=== PATIENT | female | born 1940 | race Caucasian/White ===

== ENCOUNTER 2017-04-07 15:40 | Emergency (ER) | payer OTHER ==
[~2017-04-07] VITALS: Ht 152.4 cm; Wt 42.6 kg
--- NOTE | ~2017-04-07 | CR170 ---
[facility] A Service of [facility] / [facility] RADIOLOGY TEXT RESULTS PATIENT: KANDY LEA LOCATION: [facility] : 41 UNIT #: [id number] AGE: [address]: Parminder Reyna MD SEX: F ORDER DR: [id number] [facility] [address] [place], [place] [address] [id number] MR#: [id number] Acc #: [id number] NAME: KANDY LEA : 1940 SEX: F STUDY DATE/TIME: 04/07/2017 16:48 UNIT: [facility] ROOM: STUDY DESCRIPTION: CR Knee 2 Views Rt Attending Physician: Parminder Reyna M.D. Ordering Physician: Parminder Reyna M.D. Primary Care Physician: Ayde Best M.D. MEDICAL IMAGING REPORT This report is preliminary unless electronic signature is present EXAM Right knee. HISTORY Right knee pain beginning 8 days ago. TECHNIQUE Three views of the knee were obtained. FINDINGS Generalized bony demineralization is noted. There are degenerative changes seen at the upper and lower patellar pole with small osteophytes. No significant joint space narrowing is seen in the medial or lateral compartment. No effusion is noted. No osteochondral fragments are seen. If there is clinical concern for an occult fracture, further evaluation with either MRI or nuclear medicine bone scanning may be useful. IMPRESSION There is advanced generalized bony demineralization. No definite fractures are seen. Consider bone scanning or MRI if symptoms persist given the degree of bony demineralization. Mild degenerative changes are seen at the patellofemoral joint. Dictated by... Vlad Morris M.D. THIS IS AN ELECTRONICALLY VERIFIED REPORT Vlad Morris M.D. at 04/10/2017 7:12 AM ASHANTI/leroy TD: 04/08/2017 18:09 JOB #: [id number] [facility] A Service of [facility] / [facility] RADIOLOGY TEXT RESULTS PATIENT: KANDY LEA LOCATION: [facility] : 41 UNIT #: [id number] AGE: [address]: Parminder Reyna MD SEX: F ORDER DR: MEDICAL IMAGING REPORT Page 1 of 1 COPY
[~2017-04-07 15:40] MED LIST: ACETAMINOPHEN PO; ASPIRIN EC81 M1 PO; ASPIRIN81 M1 PO; ASPIRIN81 M2 PO; CARVEDILOL3.125 MG PO; CIPRO PO; COREG CR PO; COREG PO; COREG3.125 MG PO; COUMADIN; COUMADIN PO; COUMADIN3 MG PO; COUMADIN5 MG PO; CYANOCOBAL1000 MCG/M INJ; DAILY VALUE1 EACH PO; DAKIN'S MODIF1000 ML EXT; DOLOPHINE HCL5 MG PO; FLAGYL PO; FOLIC ACID PO; FUROSEMIDE40 MG PO; HYDROCODON-ACE1 EAC7 PO; IMDUR PO; IMDUR-ER60 M1 PO; IMDUR-ER60 M1 PO/SL; IMDUR-ER60 MG PO; IMODIUM2 MG PO; KCL PO; KEFLEX250 M3 PO; KEFLEX500 M1 PO; KEFLEX500 MG PO; KEPPRA500 M1 PO; KEPPRA500 M2 PO; KEPPRA500 MG PO; KEPPRA750 MG PO; KLOR-CON PO; LACTINEX T1 TAB.CHEW PO; LASIX PO; LASIX20 MG PO; LEVOFLOXACIN500 MG PO; LEVOTHROID50 MCG PO; LEVOTHYROXINE50 MCG PO; LEVOTHYROXINE75 MCG PO; LISINOPRIL PO; METHADONE HCL10 MG PO; METHADONE PO; MICONAZOLE30 GM EXT; MICRO-K10 MEQ PO; MULTI-VITAMIN1 TAB PO; MULTIVITAMIN1 UDCAP PO; NABUMETONE PO; POTASSIUM CHLO10 MEQ PO; RANITIDINE HCL150 M1 PO; SANTYL15 G1 TP; SIMVASTATIN20 MG PO; SYNTHROID PO; SYNTHROID0.05 MG PO; TYLENOL EXTRA500 M1 PO; VITAMIN D50000 UNIT PO; WARFARIN SODIUM4 MG PO; ZANTAC PO; ZANTAC150 MG PO; ZOCOR PO; [UNRECOGNIZED DRUG - REMARK] PO
[2017-04-07] MEDS ORDERED: COREG3.125 MG PO (15:57)
[2017-04-07] MEDS ORDERED: VITAMIN D35000 UNI1 PO (15:57)
[2017-04-07] MEDS ORDERED: ASPIRIN81 MG PO (15:57)
[2017-04-07] MEDS ORDERED: IMDUR-ER60 M1 DOB (15:58)
[2017-04-07] MEDS ORDERED: KEPPRA500 M1 (15:58)
[2017-04-07] MEDS ORDERED: SYNTHROID75 MCG PO (15:59)
[2017-04-07] MEDS ORDERED: METHADONE HCL10 MG PO (15:59)
[2017-04-07 16:18] LABS: BASOPHIL% 0.3 % (0-2.5); EOSINOPHIL# 0.1 X10e3 (0-0.7); EOSINOPHIL% 0.9 % (0.0-7.0); HEMATOCRIT 43.5 % (35.0-45.0); HEMOGLOBIN 14.3 gm/dL (12.0-16.0); LYMPHOCYTE# 1.5 X10e3 (1.0-3.5); LYMPHOCYTE% 20.8 % (17.0-45.0); MEAN CELL VOLUME 97.7 FL (83-96); MEAN CORPUSCULAR HEMOGLOBIN 32.1 PG (28-34); MEAN CORPUSCULAR HGB CONC 32.8 g/dL (30-36); MEAN PLATELET VOLUME 8.1 FL (6.5-11.5); MONOCYTE# 0.5 X10e3 (0-1.0); MONOCYTE% 7.2 % (3.0-12.0); NEUTROPHIL# 4.9 X10e3 (1.5-7.1); NEUTROPHIL% 70.8 % (40-75); PLATELET COUNT 138 X10e3 (140-420); RED BLOOD COUNT 4.46 X10e (3.90-5.30); RED CELL DISTRIBUTION WIDTH 13.5 % (11.0-15.5)
[2017-04-07 16:21] LABS: DIFF IND NO
[2017-04-07 16:30] LABS: URINE SOURCE CLEAN CATCH
[2017-04-07 16:39] LABS: URINE APPEARANCE CLOUDY; URINE BILIRUBIN NEG (NEG); URINE BLOOD 2+ (NEG); URINE COLOR YELLOW; URINE GLUCOSE NEG (NEG); URINE KETONE NEG (NEG); URINE LEUKOCYTE ESTERASE 3+ (NEG); URINE NITRATE POS (NEG); URINE PROTEIN TRACE (NEG); URINE SPECIFIC GRAVITY 1.006 (1.003-1.035); URINE UROBILINOGEN 0.2 MG/DL (NEG)
[2017-04-07 16:42] LABS: URINE BACTERIA AUWI 4+ (NEGATIVE); URINE SQUAMOUS EPITHELIAL CELL OCC /[HPF]; UWBCS1 AUWI INNUM (0-5)
[2017-04-07 16:48] LABS: ALBUMIN SERUM 3.8 g/dL (3.5-5.0); BILIRUBIN, DIRECT 0.1 mg/dL (0.0-0.2); BILIRUBIN,INDIRECT 0.7 mg/dL (0.0-0.9); BILIRUBIN,TOTAL 0.8 mg/dL (0.2-2.0); BUN/CREATININE RATIO 22.3; CALCIUM SERUM 9.1 mg/dL (8.4-10.2); CREATININE SERUM 1.3 mg/dL (0.6-1.4); GLOM FILT RATE Estimated 40.1 mL/min (>60); POTASSIUM 4.2 mmol/L (3.5-5.1); PROTEIN TOTAL SERUM 7.1 g/dL (6.0-8.3)
== END 2017-04-07 18:18 | disposition home or self-care (01) ==
LOC: CED 15:40
PROVIDERS: Emergency Medicine
DX: N39.0 Urinary tract infection, site not specified (principal); M25.561 Pain in right knee; I50.9 Heart failure, unspecified; Z98.890 Other specified postprocedural states; Z88.2 Allergy status to sulfonamides; Z88.5 Allergy status to narcotic agent; Z88.1 Allergy status to other antibiotic agents; Z88.8 Allergy status to other drugs, medicaments and biological substances; Z79.899 Other long term (current) drug therapy; Z79.82 Long term (current) use of aspirin
CPT/HCPCS: 36415; 73560; 80048; 80076; 81003; 85025; 96365; 96375; 99283; J0696; J2270; J2405

== ENCOUNTER 2017-04-24 07:43 | Inpatient (IN) | payer OTHER ==
--- NOTE | ~2017-04-24 | CO ---
Unit #: [id number] #: [id number] Patient: KANDY LEA [id number] [address] [place], [place] [address] [id number] I MR#: [id number] NAME: KANDY LEA ROOM: 321 Age: 76 Sex: F Admission Date: 04/24/2017 : 1940 Attending Physician: Kendra Meier M.D. Primary Care Physician: Ayde Best M.D. Consultation Date: 04/24/2017 CONSULTATION REPORT HISTORY OF PRESENT ILLNESS This is a 76-year-old white female, who has a history of coronary artery disease where she underwent coronary artery bypass graft x1 with St. Rajendra mechanical aortic valve replacement in 2000. She is known to have ischemic cardiomyopathy and had AICD implanted in 2004. She has chronic systolic heart failure, hypertension, and hyperlipidemia. The patient presents to the emergency room with a complaint of nosebleed and confusion. The patient is unable to provide a history; therefore, information has been obtained by the daughter, who is at the bedside. Her daughter who lives above her, found the patient to have a trial of blood on the floor throughout the hallway. Yesterday, she was noted to have slurred speech, but was otherwise in her usual state of health. Today, she was confused. They brought her to the emergency room for further evaluation. She was found to have urinary tract infection. Her epistaxis has since resolved. According to the daughter, she has had no other complaints lately except for generalized pain and a persistent lower extremity edema. She usually walks all day long and has no chest pain or shortness of breath. She has a history of a St. Rajendra mechanical aortic valve replacement and took herself off a Coumadin a year and a half ago. She has since failed to follow up with Cardiology. At one time, she was following with Dr. Mejía. Her troponin is negative with no acute ischemic changes on EKG. Hemoglobin is stable at 10.9. Her family does state that the patient had several episodes where she was "staring" for a period of time. There was no obvious seizure disorder or history of CVA in the past. PAST MEDICAL HISTORY 1. St. Rajendra mechanical aortic valve replacement with coronary artery bypass graft x1. 2. Ischemic cardiomyopathy, status post AICD in 09/2004. 3. Chronic systolic heart failure with an ejection fraction of 35% to 40% in 2008. 4. 2D echocardiogram on 03/24/2011 shows an ejection fraction of 55% with mild mitral regurgitation. There was [id number]-[id number] tricuspid regurgitation. Normal gradients of the mechanical aortic valve. 5. Hypertension. 6. Hyperlipidemia. 7. Hypothyroidism. 8. Chronic pain syndrome. 9. Narcotic dependence. 10. Chronic kidney disease. 11. Questionable seizure disorder. Unit #: [id number] #: [id number] Patient: KANDY LEA PAST SURGICAL HISTORY 1. Coronary artery bypass graft with mechanical aortic valve replacement in 2000. 2. AICD implantation. 3. Cholecystectomy. 4. Tonsillectomy. 5. Back surgery. SOCIAL HISTORY The patient lives at a home separately from her daughter. She quit smoking more than 25 years ago. There is no report of illicit drug or alcohol use. FAMILY HISTORY Positive for heart disease in her mother, who at age 41. ALLERGIES Heparin, penicillin, macrolide, sulfur, codeine, and adhesive. HOME MEDICATIONS Methadone 10 mg b.i.d. p.r.n., carvedilol 3.125 mg b.i.d., Imdur 60 mg daily, vitamin D2 50,000 units weekly, aspirin 81 mg daily, Keppra 500 mg t.i.d., levothyroxine 75 mcg daily. REVIEW OF SYSTEMS Unable to obtain, because of the patient's current confusion. PHYSICAL EXAMINATION VITAL SIGNS: Blood pressure 137/70, heart rate 115 to 150, temperature 97.2. GENERAL: This is a thin frail 76-year-old white female, who is in no acute distress. NEUROLOGIC: The patient does not attempt to open her eyes or speak at this time. There are no obvious focal weaknesses. NECK: Trachea is midline. No thyromegaly or lymphadenopathy. No jugular venous distention. HEART: Aortic valve prosthesis sounds S1 normal with questionable muffled S2. There is a grade 3/6 systolic murmur heard best at the right sternal border. No rubs or clicks. Regular rate and rhythm. LUNGS: Clear without rales, rhonchi, or wheezing. ABDOMEN: Soft and nontender with bowel sounds present. EXTREMITIES: With trace leg edema. SKIN: Warm and dry. DIAGNOSTIC STUDIES LABORATORY RESULTS: Hemoglobin 10.9, hematocrit 32.8, platelet count 116, white count 8.5. Sodium 138, potassium 4.4, BUN 39, creatinine 1.3, glucose 84. TSH 1.32. Troponin 0.03, MB index 5.9. IMAGING STUDIES: Chest x-ray shows low lung volumes. CARDIOVASCULAR STUDIES: EKG shows ventricular paced rhythm with sinus tachycardia underlying. IMPRESSION 1. Altered mental status. 2. Urinary tract infection. 3. Epistaxis, resolved. Unit #: [id number] #: [id number] Patient: KANDY LEA 4. Paroxysmal supraventricular tachycardia. 5. History of coronary artery bypass graft x1 with St. Rajendra mechanical aortic valve replacement. 6. Hypertension. 7. Hyperlipidemia. 8. Questionable dementia. 9. Chronic systolic heart failure, status post automatic implantable cardioverter-defibrillator. 10. Chronic pain syndrome. 11. Noncompliance. 12. Questionable heparin allergy. PLAN 1. Cardiology was consulted for anticoagulation in the patient with a mechanical aortic valve replacement. The patient took herself off Coumadin a year and a half ago. The family does not know what type of allergic reaction to heparin the patient has. She is unable to provide that history. It was told to the family that if the patient does not want warfarin, she will be at risk for life-threatening strokes. It was also discussed that the risks of heparin-induced DIC may occur if she really has a heparin allergy. Her granddaughter wants us to proceed with the use of IV heparin. 2. The patient had a run of paroxysmal supraventricular tachycardia in the emergency room, where heart rate was up to 150 beats per minute that was treated with IV Lopressor. We will increase the beta mariela Coreg to 6.25 mg b.i.d. 3. Attempt to obtain records from [facility]. 4. 2D echocardiogram will be done to evaluate left ventricular systolic function. 5. The patient may need a transesophageal echocardiogram to evaluate the function of the aortic valve. 6. AICD will be interrogated since has not been done in the past year or greater. 7. We will monitor renal function. Thank you for allowing us to assist with this patient's care. Dictated by... Elie Goss.P.RMadonnaN. for Miguel Latham M.D. DARLINE/stanislaw TD: 04/27/2017 17:25 JOB #: [id number] CC: Ayde Best M.D. CONSULTATION REPORT Page 1 of 1 X Pawel Ugarte APRN CONSULTATION REPORT
--- NOTE | ~2017-04-24 | A ---
[facility] Nutrition Therapy DATE: 04/25/17 Patient: KANDY MENDESVALL Physician: AMERICA Address: [address] [place] [address] Room/Bed: [address], Zip: [place] [address] Admit Date: 04/24/17 Date of : 42 Height: Weight: 82 37.33 NUTRITIONAL ASSESSMENT: REASON: LOW BMI (17.7), 1 NUTRITIONAL RISK SCORE FOR EATING POORLY PATIENT ADMITTED FOR AMS AND UTI PMH: CHF, CAD, CKD, SEIZURE DISORDER, HTN, CHRONIC CARREON CATHETER, HYPOTHYROIDISM Anthropometrics: HT: 4'9", WT: 82#, BMI: 17.7 Labs: 04/25/17- BUN: 40, CREA: 1.5, CA: 7.6, AST: 489, ALT: 417, GFR: 33.7 Meds: DOPAMINE, ROCEPHIN, NACL, KEPPRA I/O & Bowel function: 800/150 Skin Integrity: INTACT, REDNESS TO BACK AND BUTTOCKS Estimated Nutrition Needs: INCREASED 2' LOW BMI Assessment: PATIENT IS A 76 Y/O FEMALE ADMITTED FOR AMS AND UTI. PATIENT CAME TO THE ER WITH A NOSEBLEED AND AMS. NURSING REPORTS PATIENT IS A/O WITH SOME CONFUSION, SHE HAS A PROLAPSED BLADDER, AND SHE HAS BEEN EATING WELL. DURING VISIT, PATIENT WAS ACTIVELY EATING HER LUNCH. SHE STATED SHE HAS A GOOD APPETITE TODAY, BUT THAT SHE HAD NOT EATEN THE LAST 2 DAYS. PATIENT DENIES ANY N/V/D/C. FAMILY WAS AT BEDSIDE AND DENIED ANY RECENT WEIGHT LOSS. PATIENT USED TO DRINK AN ORAL NUTRITION SUPPLEMENT AT HOME, BUT HAS NOT FOR SOMETIME. SHE WAS WILLING TO TRY ENSURE WHILE IN THE FACILITY. SHE DID NOT HAVE ANY NUTRITION EDUCATION QUESTIONS ATT. PATIENT IS ON A HEART HEALTHY DIET WITH AN 1800CC FLUID RESTRICTION. Dx: INADEQUATE NUTRIENT INTAKE R/T CURRENT CONDITION AEB LOW BMI Intervention: HEART HEALTHY DIET, FLUID RESTRICTION, SUPPLEMENTATION Monitoring, Evaluation and Goals: 1. ADEQUATE PO INTAKES >50% OF MEALS 2. PREVENT, CORRECT MICRO/MACRO NUTRIENT DEFICIENCIES 3. WEIGHT; PROMOTE A STEADY WEIGHT GAIN TOWARDS A HEALTHY BMI OF 19-25 4. LABS WNL MONITOR: WEIGHTS, LABS, I/Os Recommendations: [facility] Nutrition Therapy DATE: 04/25/17 Patient: KANDY LEA Physician: [place] Address: [address] Room/Bed: [address], Zip: [place] [address] Admit Date: 04/24/17 Date of : 41 Height: Weight: 82 37.33 1. CONTINUE HEART HEALTHY DIET WITH 1800 CC FLUID RESTRICTION TOLERATED. WILL ORDER VANILLA ENSURE BID WITH MEALS TO PROMOTE ADEQUATE KCAL AND PROTEIN INTAKES 2. ENCOURAGE ADEQUATE PO AND FLUID INTAKES 3. OBTAIN WEIGHTS ROUTINELY (EVERY 2-3 DAYS) 4[address] CON[address] RD WITH ANY FURTHER NUTRITION QUESTIONS OR CONCERNS RD TO F/U PER PROTOCOL AND PRN R/T PATIENT AT MILD NUTRITION RISK Respectfully, DAVE COOK, RD, LD [facility] cc: client file
--- NOTE | ~2017-04-24 | CR72 ---
[facility] A Service of [facility] RADIOLOGY TEXT RESULTS PATIENT: KANDY LEA LOCATION: [address] : 41 UNIT #: [id number] AGE: [address]: Kendra Meier MD SEX: F ORDER DR: [id number] [facility] [address] [place], [place] [address] [id number] I MR#: [id number] Acc #: [id number] NAME: KANDY LEA : 1940 SEX: F STUDY DATE/TIME: 04/25/2017 6:23 UNIT: [facility] ROOM: [facility] STUDY DESCRIPTION: CR Chest Single View Portable Attending Physician: Kendra Meier M.D. Ordering Physician: Lindsey Carbajal M.D. Primary Care Physician: Ayde Best M.D. MEDICAL IMAGING REPORT This report is preliminary unless electronic signature is present EXAM Frontal chest 04/25/2017 INDICATIONS Shortness of air in a 76-year-old female weakness, altered mental status symptoms 2 days. Hypertension. COMPARISON Frontal chest compared 04/24/2017 FINDINGS New right-sided PICC line tip at the [id number]-tm-[id number] SVC level. The patient is status post median sternotomy and heart valve replacement. Pacemaker/defibrillator from left sided approach not significantly changed. Cardiac silhouette stable. No effusion dense consolidation or pneumothorax. There is old healed granulomatous disease. Interstitial prominence stable to slightly increased without evidence of distinct volume overload. Impression 1. Low lung volumes. Background changes of chronic granulomatous disease without new dense consolidation, effusion or pneumothorax. 2. There is a new right-sided PICC line with its tip at the [id number] SVC level. Dictated by... Charly Cole M.D. THIS IS AN ELECTRONICALLY VERIFIED REPORT Charly Cole M.D. at 04/25/2017 2:29 PM ANETA/eloise TD: 04/25/2017 12:39 [facility] A Service of [facility] RADIOLOGY TEXT RESULTS PATIENT: KANDY LEA LOCATION: [address] : 41 UNIT #: [id number] AGE: [address]: Kendra Meier MD SEX: F ORDER DR: JOB #: [id number] MEDICAL IMAGING REPORT Page 1 of 1 COPY
--- NOTE | ~2017-04-24 | CR72 ---
[facility] A Service of [facility] RADIOLOGY TEXT RESULTS PATIENT: KANDY LEA LOCATION: [facility] 321-01 : 41 UNIT #: [id number] AGE: [address]: Kendra Meier MD SEX: F ORDER DR: [id number] [facility] [address] [place], [place] [address] [id number] I MR#: [id number] Acc #: [id number] NAME: KANDY LEA : 1940 SEX: F STUDY DATE/TIME: 04/26/2017 5:58 UNIT: [facility] ROOM: [facility] STUDY DESCRIPTION: CR Chest Single View Portable Attending Physician: Kendra Meier M.D. Ordering Physician: Miguel Latham M.D. Primary Care Physician: Ayde Best M.D. MEDICAL IMAGING REPORT This report is preliminary unless electronic signature is present EXAM Single view of the chest, 04/26/2017. COMPARISON Single view chest, 04/25/2017. HISTORY Short of air, weakness, and altered mental status for 3 days. FINDINGS Single view of the chest was obtained. Postoperative changes of CABG are noted with pacemaker in place. Calcified left upper lobe lung nodule is noted. Deformity of bilateral humeral heads is seen, worse on the left when compared to the right. They are chronic-appearing. Right subclavian-appearing PICC line catheter tip is in the region of the SVC. No significant interval change in the cardiopulmonary status. Aortic valve replacement is noted, stable. Dictated by... Romero Luque M.D. THIS IS AN ELECTRONICALLY VERIFIED REPORT Romero Luque M.D. at 04/27/2017 2:46 PM CPR/js TD: 04/26/2017 13:45 JOB #: [id number] MEDICAL IMAGING REPORT Page 1 of 1 COPY
--- NOTE | ~2017-04-24 | DS ---
Unit #: [id number] #: [id number] Patient: KANDY LEA [id number] [address] [address] [id number] I MR#: [id number] NAME: KANDY LEA ROOM: 321 Age: 76 Sex: F Admission Date: 04/24/2017 : 1940 Discharge Date: 04/27/2017 Attending Physician: Knedra Meier M.D. Primary Care Physician: Ayde Best M.D. DISCHARGE SUMMARY PRINCIPAL DIAGNOSES 1. Septic shock secondary to catheter associated enterococcus urinary tract infection. 2. Acute blood loss anemia. 3. Acute on chronic systolic congestive heart failure, ejection fraction of 40%. 4. Mechanical aortic valve not previously on anticoagulation. 5. Epistaxis. 6. Severe bladder prolapse, stage 4. 7. Coronary artery disease. 8. History of hypertension currently off antihypertensives. 9. Chronic pain syndrome maintained on opiates. 10. Seizure disorder. 11. Chronic kidney disease stage 2 with recent creatinine of approximately 1.3. 12. Hypothyroidism. 13. Chronic indwelling Crook catheter. 14. Severe protein malnutrition. 15. Underweight. 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 PROCEDURES 1. 2-Dimensional echocardiogram revealed ejection fraction of approximately 40%. Mechanical aortic valve was noted. 2. Transfusion of packed red blood cells. This occurred without complication. 3. Chest x-ray 04/24/2017 with diminished lung volumes. 4. Left-sided pacemaker placement noted. 5. Right lower extremity venous Doppler, which was negative for DVT. 6. Chest x-ray on 04/26/2017 with a calcified left upper lobe lung nodule. CLINICAL HISTORY/HOSPITAL COURSE Ms. Lea is a nice 76-year-old female initially brought to the emergency department by family after developing a nosebleed at home. Patient was also mildly confused and staring off. In the emergency department vital signs were stable. She didn't undergo urinalysis and had findings concerning for urinary tract infection. Given her epistaxis and her UTI she was initially placed in observation for evaluation. Overnight following admission, the patient abruptly developed significant hypotension and worsening mental status. She was transferred to the ICU, Unit #: [id number] #: [id number] Patient: KANDY LEA received several fluid boluses and ultimately required pressor therapy secondary to what was ultimately septic shock. She had initially been placed on Rocephin for urinary tract infection but it was found to be enterococcus and she was changed to Merrem. Following antibiotic adjustment the patient's hypotension resolved. Her Crook catheter was changed today on 04/27/2017. She will complete Merrem as outlined below. Patient also has a history of mechanical aortic valve but she removed herself from Coumadin 18 months ago without consulting a cheese processor. For this reason, Dr. Latham was consulted. Initially, plans have been for heparin drip but again patient had epistaxis and this was held. Patient was placed on Coumadin and unfortunately at the time of discharge her INR is therapeutic at 2.7. She is agreeable not to maintaining anticoagulation upon discharge. Patient also underwent 2D echocardiogram revealing some chronic congestive heart failure and she has been placed on Lasix but again was hypotensive. Her blood pressure will not tolerate ABI inhibitor, ARB, beta-mariela or diuretics this time and these meds are going to be held upon discharge. Patient was seen today by physical therapy and is clinically at her baseline. She will be discharged home on medications as noted. DISCHARGE CONDITION Stable. DISCHARGE STATUS Discharge to home with home health. DISCHARGE MEDICATIONS 1. Vitamin D 50,000 units weekly on Mondays. 2. Merrem 500 mg IV q.12 hours to stop after dose is given on 05/03/2017. 3. Keppra 500 mg p.o. t.i.d. 4. Levothyroxine 75 mcg p.o. daily. 5. Methadone 10 mg p.o. b.i.d. p.r.n. for pain. 6. Coumadin 5 mg p.o. daily, again with goal INR of 2.5 to 3.5. DISCHARGE INSTRUCTIONS 1. Patient was instructed to follow a regular diet. 2. She can increase her activity as tolerated. FOLLOWUP Patient need a followup INR done on 04/28/2017. She should have discontinuation of PICC line upon completion of IV antibiotics. She will followup with her primary care physician in two weeks. We will followup with Dr. Latham in 05/2017 as previously scheduled. Time spent on discharge 33 minutes. Dictated by... Kendra Meier M.D. ROSIE/jeremy TD: 04/30/2017 18:28 JOB #: [id number] Unit #: [id number] #: [id number] Patient: KANDY LEA DISCHARGE SUMMARY Page 1 of 1 X Kendra Meier MD X DISCHARGE SUMMARY
--- NOTE | ~2017-04-24 | CR72 ---
[facility] A Service of [facility] & [facility] RADIOLOGY TEXT RESULTS PATIENT: KANDY LEA LOCATION: [address] : 41 UNIT #: [id number] AGE: [address]: Kendra Meier MD SEX: F ORDER DR: [id number] [facility] [address] [place], [place] [address] [id number] I MR#: [id number] Acc #: [id number] NAME: KANDY LEA : 1940 SEX: F STUDY DATE/TIME: 04/24/2017 14:38 UNIT: [facility] ROOM: [facility] STUDY DESCRIPTION: CR Chest Single View Portable Attending Physician: Kendra Meier M.D. Ordering Physician: Patrick Solis M.D. Primary Care Physician: Ayde Best M.D. MEDICAL IMAGING REPORT This report is preliminary unless electronic signature is present EXAM Portable chest. INDICATIONS Shortness of breath starting today. FINDINGS Heart size is within normal limits for portable technique. Lung volumes are diminished. There is probably some bibasilar scarring but there is some blunting of the right costophrenic angle which I think is increased when compared to the prior exam which may reflect trace effusion. No pneumothorax is identified. I am not convinced I can see any acute infiltrates. Patient is status post median sternotomy with coronary artery bypass grafting. Left-sided pacemaker is present. This patient has advanced degenerative changes involving the proximal right humerus and in fact may have had some post-traumatic deformity of some point. Dictated by... Wanda Kee M.D. THIS IS AN ELECTRONICALLY VERIFIED REPORT Wanda Kee M.D. at 04/26/2017 8:33 AM AFF/lb TD: 04/25/2017 10:44 JOB #: [id number] MEDICAL IMAGING REPORT Page 1 of 1 COPY
--- NOTE | ~2017-04-24 | HP ---
Unit #: [id number] #: [id number] Patient: KANDY LEA [id number] [address] [place], [place] [address] [id number] MR#: [id number] NAME: KANDY LEA ROOM: 14279 Age: 76 Sex: F Admission Date: 04/24/2017 : 1940 Attending Physician: Lindsey Carbajal M.D. Primary Care Physician: Ayde Best M.D. HISTORY AND PHYSICAL CHIEF COMPLAINT Nosebleed. HISTORY OF PRESENT ILLNESS The patient is a 76-year-old female with a past medical history of CHF, hypertension, valvular heart disease, chronic Crook catheter, seizure disorder, chronic kidney disease, hypothyroidism, coronary artery disease who presented to the emergency department for evaluation of the above. The patient's chief complaint was nosebleed. It apparently started this morning and the patient was brought to the emergency department for evaluation. Family states that she did not call her daughter who lives in the home to assist her when she had the nosebleed. The family states that this is not normal for her. They think that she is confused. She was in her normal state of health or usual state of health on the evening prior to admission. Family denies any fever. No cough or cold symptoms. She has been eating. No vomiting or diarrhea. She has a chronic Crook catheter that has been in place for about five years. It was last changed last week. She has been complaining of a bad taste in her mouth and has been spitting intermittently for the past month. The family is concerned that she may be having more frequent seizures. Her seizures typically consist of "staring off." She is not followed by a neurologist. She does take Keppra and has been taking it as prescribed. In the emergency department, initial pulse and blood pressure was 65 and 122/51 respectively. Laboratory notable for findings concerning for urinary tract infection. She was given a g of Rocephin. She is being admitted to [facility] for evaluation and further treatment. Of note, the nosebleed stopped prior to evaluation in the emergency department. The patient is not on chronic anticoagulation. She does, however, have a St. Rajendra mechanical valve. Family states that the patient took herself off Coumadin about 18 months ago. PAST MEDICAL HISTORY 1. Admission to [facility] 06/05/2016 for sepsis secondary to E. coli urinary tract infection. 2. Congestive heart failure. The patient had an echocardiogram 04/07/2011 that showed an ejection fraction of 50% to 55% with mild mitral regurgitation. 3. Mild to moderate tricuspid regurgitation. The patient has seen Dr. Quinones in the past. She is status post AICD placement. 4. Coronary artery disease, status post coronary artery bypass grafting to the right coronary artery in 04/2011 (per cardiology consultation noted dated 06/13/2011). Unit #: [id number] #: [id number] Patient: KANDY LEA 5. Valvular heart disease, status post aortic valve replacement with St. Rajendra mechanical valve, not currently on chronic anticoagulation. 6. Hypertension. 7. Chronic pain. 8. Seizure disorder maintained on Keppra, not followed by neurologist. 9. Chronic kidney disease. 10. Hypertension. 11. Hypothyroidism. 12. Urinary incontinent with chronic Crook catheter. PAST SURGICAL HISTORY 1. Coronary artery bypass grafting. 2. St. Rajendra mechanical valve replacement of aortic valve. 3. AICD placement. 4. Cholecystectomy. 5. Back surgery. 6. Tonsillectomy. 7. Debridement of buttock wounds. SOCIAL HISTORY The patient lives with her daughter. There is no tobacco use. She has a walker. Her code status is a full code. FAMILY HISTORY Notable for her mother having coronary artery disease. ALLERGIES Heparin, penicillin, macrolide antibiotic, sulfa, codeine. HOME MEDICATIONS Methadone 10 mg twice daily p.r.n.; Coreg 3.125 mg twice daily; Imdur 60 mg daily; vitamin D 50,000 units weekly; aspirin 81 mg daily; Keppra 500 mg t.i.d.; Synthroid 75 mcg daily. REVIEW OF SYSTEMS A complete review of systems is negative except as indicated in the HPI. PHYSICAL EXAMINATION VITAL SIGNS: Temperature is 97.1, pulse 65, respirations 18, blood pressure 122/51, oxygen saturation is 96% on room air. GENERAL: The patient is a female who is awake and alert in no acute distress. HEENT: Head is atraumatic. There is some dried blood about the left naris. Mucous membranes are moist. NECK: Supple. Trachea is midline. CARDIOVASCULAR: Patient has at least a 3/6 systolic ejection murmur. There is also a click. LUNGS: Clear to auscultation bilaterally with no increased work of breathing. ABDOMEN: Soft, nontender with bowel sounds present in all four quadrants. EXTREMITIES: The right lower extremity is edematous and tender to palpation. The left lower extremity demonstrates an eschar on the anterior aspect of the left leg. NEUROLOGIC: The patient is awake and alert. She is oriented to person and place. She is moving all extremities. PSYCH: Mood and affect are normal. The patient is cooperative. SKIN: Skin of examined areas is warm and dry. Unit #: [id number] #: [id number] Patient: KANDY LEA The patient is a 76-year-old female with: 1. Altered mental status. 2. Urinary tract infection. Review of urinary cultures from [facility] shows that the patient had a urine culture 06/2016 that grew greater than 100,000 E. coli that was resistant to Bactrim and ampicillin. She received a gram of Rocephin in the emergency department. 3. Epistaxis that resolved prior to evaluation in the emergency department. Hemoglobin 10.9, INR is 1. The patient does take a baby aspirin daily. 4. Chronic Crook catheter secondary to incontinence. The catheter was last change last week. 5. Congestive heart failure with ejection fraction of 50% to 55% noted on echocardiogram 04/07/2011. The patient is status post AICD placement. 6. Hypertension. 7. Valvular heart disease with St. Rajendra mechanical valve. The patient took herself off Coumadin 18 months ago. 8. Seizure disorder maintained on Keppra. 9. Chronic kidney disease. 10. Coronary artery disease, status post coronary artery bypass grafting. 11. Hypothyroidism. PLAN 1. Admit for observation to an intermediate level. 2. Healthy heart disease and passes bedside swallow. 3. Bedrest. 4. Fall precautions. 5. Neuro checks. 6. TSH, B12 and folate. 7. Blood cultures x2. 8. Urine culture and sensitivity on urine in lab. 9. Rocephin 1 g IV daily pending results of urine culture. 10. EKG and cardiac enzymes. 11. Consult Dr. Latham regarding mechanical valve and need for chronic anticoagulation. 12. Hemoglobin and hematocrit q.6 hours. 13. Right lower extremity venous Doppler for further evaluation of edema and pain. 14. Wound care consult regarding left leg wound. 15. Chest x-ray for further evaluation of altered mental status. 16. Repeat labs in the morning. 17. Additional workup and consultants based on above. DIAGNOSTIC TESTED LABORATORY STUDIES: Complete blood count notable for hemoglobin and hematocrit of 10.9 and 32.8 respectively. Platelets are 116, INR is 1. Urinalysis notable for 3+ leukocyte esterase, 1+ protein, 4+ blood with 10 to 25 red blood cells, 100 to 200 white blood cells, 2+ bacteria. Basic metabolic panel notable for BUN and creatinine of 39 and 1.3 respectively. Unit #: [id number] #: [id number] Patient: KANDY LEA Dictated by Toni Abel/jeremy TD: 04/24/2017 12:41 JOB #: [id number] HISTORY AND PHYSICAL Page 1 of 1 X Lindsey Carbajal MD X HISTORY AND PHYSICAL
--- NOTE | ~2017-04-24 | EKG ---
PATIENT: KANDY LEA UNIT #: [id number] Ventricular Rate: 122 BPM Atrial Rate: 122 BPM QRS Duration: 132 ms Q-T Interval: 350 ms QTC Calculation(Bezet): 498 ms P [place]: 78 degrees Calculated R [place]: -142 degrees Calculated T [place]: 55 degrees Diagnosis Line: Ventricular-paced rhythm Diagnosis Line: Biventricular pacemaker detected Diagnosis Line: Abnormal ECG Diagnosis Line: When compared with ECG of 23-JUN-2016 14:42, Diagnosis Line: Vent. rate has increased BY 64 BPM Diagnosis Line: Confirmed by KIMBERLY DE LA FUENTE MD ([id number]) on Diagnosis Line: 04/24/2017 2:27:34 PM INTERPRETING MD: SUDHAKAR PATTERSON
--- NOTE | ~2017-04-24 | EKG ---
PATIENT: KANDY LEA UNIT #: [id number] Ventricular Rate: 72 BPM Atrial Rate: 72 BPM P-R Interval: 162 ms QRS Duration: 142 ms Q-T Interval: 458 ms QTC Calculation(Bezet): 501 ms P [place]: 82 degrees Calculated R [place]: -173 degrees Calculated T [place]: 73 degrees Diagnosis Line: Electronic ventricular pacemaker Diagnosis Line: When compared with ECG of 24-APR-2017 12:30, Diagnosis Line: Vent. rate has decreased BY 50 BPM Diagnosis Line: Confirmed by JERSON KO MD ([id number]) on 04/26/2017 Diagnosis Line: 7:56:29 AM INTERPRETING MD: STEFANI PATTERSON
--- NOTE | ~2017-04-24 | US85 ---
[facility] A Service of [facility] RADIOLOGY TEXT RESULTS PATIENT: KANDY LEA LOCATION: [address] : [birth year] UNIT #: [id number] AGE: [address]: Kendra Meier MD SEX: F ORDER DR: [id number] [facility] [address] [facility]. [place], [place] [address] [id number] MR#: [id number] Acc #: [id number] NAME: KANDY LEA : 1940 SEX: F STUDY DATE/TIME: 04/24/2017 19:20 UNIT: [facility] ROOM: [facility] STUDY DESCRIPTION: [facility] [employer] [facility] [employer] St[facility] Attending Physician: Kendra Meier M.D. Ordering Physician: Lindsey Carbajal M.D. Primary Care Physician: Ayde Best M.D. MEDICAL IMAGING REPORT This report is preliminary unless electronic signature is present EXAM Right lower extremity venous ultrasound. HISTORY Right leg pain and edema, chronic for years. TECHNIQUE Venous ultrasound examination of the right lower extremity was performed using grayscale, spectral Doppler and color flow Doppler imaging. FINDINGS The examination is negative. There is no evidence of right lower extremity deep venous thrombus from the groin to the lower calf. Visualized greater saphenous vein is also patent. IMPRESSION Negative examination. No evidence of right lower extremity deep venous thrombosis. Dictated by... Ranjit Andrew M.D. THIS IS AN ELECTRONICALLY VERIFIED REPORT Ranjit Andrew M.D. at 04/25/2017 2:29 PM DFL/monica TD: 04/25/2017 13:26 JOB #: [id number] MEDICAL IMAGING REPORT [facility] A Service [facility] RADIOLOGY TEXT RESULTS PATIENT: KANDY LEA LOCATION: [address] : [birth year] UNIT #: [id number] AGE: [address]: Kendra Meier MD SEX: F ORDER DR: Page 1 of 1 COPY
[~2017-04-24 07:43] MED LIST changes: +ASPIRIN81 MG PO; +IMDUR-ER60 M1 DOB; +KEPPRA500 M1; +SYNTHROID75 MCG PO; +VITAMIN D35000 UNI1 PO
[2017-04-24 08:59] LABS: BASOPHIL% 0.3 % (0-2.5); EOSINOPHIL# 0.1 X10e3 (0-0.7); EOSINOPHIL% 0.7 % (0.0-7.0); HEMATOCRIT 32.8 % (35.0-45.0); HEMOGLOBIN 10.9 gm/dL (12.0-16.0); LYMPHOCYTE# 0.7 X10e3 (1.0-3.5); LYMPHOCYTE% 8.3 % (17.0-45.0); MEAN CELL VOLUME 98.1 FL (83-96); MEAN CORPUSCULAR HEMOGLOBIN 32.7 PG (28-34); MEAN CORPUSCULAR HGB CONC 33.3 g/dL (30-36); MEAN PLATELET VOLUME 7.4 FL (6.5-11.5); MONOCYTE# 0.5 X10e3 (0-1.0); MONOCYTE% 5.6 % (3.0-12.0); NEUTROPHIL# 7.2 X10e3 (1.5-7.1); NEUTROPHIL% 85.1 % (40-75); PLATELET COUNT 116 X10e3 (140-420); RED BLOOD COUNT 3.34 X10e (3.90-5.30); RED CELL DISTRIBUTION WIDTH 13.3 % (11.0-15.5); WHITE BLOOD COUNT 8.5 X10e3 (4.0-10.5)
[2017-04-24 09:02] LABS: DIFF IND NO
[2017-04-24 09:19] LABS: PARTIAL THROMBOPLASTIN TIME 26.6 SECONDS (23.5-31.3); PROTHROMBIN TIME (PATIENT) 10.7 SECONDS (10.0-11.7)
[2017-04-24 10:30] LABS: URINE SOURCE CLEAN CATCH
[2017-04-24 10:33] LABS: URINE APPEARANCE CLOUDY; URINE BILIRUBIN NEG (NEG); URINE BLOOD 4+ (NEG); URINE COLOR YELLOW; URINE GLUCOSE NORM (NORM); URINE KETONE NEG (NEG); URINE LEUKOCYTE ESTERASE 3+ (NEG); URINE NITRATE NEG (NEG); URINE PROTEIN 1+ (NEG); URINE SPECIFIC GRAVITY 1.015 (1.003-1.035); URINE UROBILINOGEN NORM (NORM)
[2017-04-24 10:49] LABS: CULTURE INDICATED? YES; URINE BACTERIA AUWI 2+ (NEGATIVE); URINE SQUAMOUS EPITHELIAL CELL FEW /[HPF]; UWBCS1 AUWI 100-200 (0-5)
[2017-04-24 10:50] LABS: U HYALINE CASTS AUWI 0-2 /[LPF]
[2017-04-24 11:21] LABS: CREATININE SERUM 1.3 mg/dL (0.6-1.4); GLOM FILT RATE Estimated 40.1 mL/min (>60); POTASSIUM 4.4 mmol/L (3.5-5.1)
[2017-04-24] MEDS ORDERED: IMDUR PO (11:21)
[2017-04-24] MEDS ORDERED: COREG3.125 M1 PO (11:21)
[2017-04-24] MEDS ORDERED: METHADONE HCL10 MG PO (11:21)
[2017-04-24] MEDS ORDERED: VITAMIN D250000 UNIT PO (11:21)
[2017-04-24] MEDS ORDERED: PATIENT'S PHARMACY (11:21)
[2017-04-24] MEDS ORDERED: ASPIRIN81 M2 PO (11:27)
[2017-04-24] MEDS ORDERED: KEPPRA500 M2 PO (11:27)
[2017-04-24] MEDS ORDERED: SYNTHROID75 MCG PO (11:27)
[2017-04-24 13:04] LABS: FOLATE (FOLIC ACID) >23.3 ng/mL (>5.8)
[2017-04-24 13:19] LABS: %MB 5.9 % (0.0-4.0); MB 4.4 ng/ml
[2017-04-24 14:21] LABS: ARTERIAL BLD GAS O2 SATURATION 93.5 % (90.0-100.0); ARTERIAL BLOOD GAS CARBOXY HB 0.8 %sat (0.0-9.0); ARTERIAL BLOOD GAS HCO3 28.4 mmol/L; ARTERIAL BLOOD GAS MET HB 0.8 %sat (0.0-2.0); ARTERIAL BLOOD GAS PCO2 44.3 mmHg (35.0-45.0); ARTERIAL BLOOD GAS pH 7.415 (7.350-7.450)
[2017-04-24 14:22] LABS: ARTERIAL BLOOD GAS ALLEN TEST NORMAL; ARTERIAL BLOOD GAS ART SITE RIGHT RADIAL; ARTERIAL BLOOD GAS DELIVERY NASAL CANNULA; ARTERIAL BLOOD GAS PO2 68.1 mmHg (80.0-100); ARTERIAL DRAW? YES
[2017-04-24 15:01] LABS: HEMATOCRIT 33.8 % (35.0-45.0)
[2017-04-24 18:48] LABS: %MB 3.3 % (0.0-4.0); MB 2.2 ng/ml
[2017-04-24 22:16] LABS: HEMATOCRIT 29.4 % (35.0-45.0); HEMOGLOBIN 9.6 gm/dL (12.0-16.0)
[2017-04-25 02:24] LABS: BASOPHIL% 0.1 % (0-2.5); HEMATOCRIT 24.7 % (35.0-45.0); HEMOGLOBIN 8.1 gm/dL (12.0-16.0); LYMPHOCYTE# 0.2 X10e3 (1.0-3.5); LYMPHOCYTE% 1.3 % (17.0-45.0); MEAN CELL VOLUME 98.1 FL (83-96); MEAN CORPUSCULAR HEMOGLOBIN 32.1 PG (28-34); MEAN CORPUSCULAR HGB CONC 32.8 g/dL (30-36); MEAN PLATELET VOLUME 7.9 FL (6.5-11.5); MONOCYTE# 0.8 X10e3 (0-1.0); MONOCYTE% 5.2 % (3.0-12.0); NEUTROPHIL# 13.6 X10e3 (1.5-7.1); NEUTROPHIL% 93.4 % (40-75); RED BLOOD COUNT 2.52 X10e (3.90-5.30); RED CELL DISTRIBUTION WIDTH 13.2 % (11.0-15.5)
[2017-04-25 02:50] LABS: DIFF IND YES; PLATELET COUNT 94 X10e3 (140-420); WHITE BLOOD COUNT 14.6 X10e3 (4.0-10.5)
[2017-04-25 02:53] LABS: PLATELET ESTIMATE DECREASED (NORMAL)
[2017-04-25 02:54] LABS: ANISOCYTOSIS SL; OVALOCYTES PRESENT; ROULEAUX SLIGHT
[2017-04-25 02:55] LABS: SPHEROCYTE SL
[2017-04-25 03:52] LABS: %MB 3.2 % (0.0-4.0); MB 3.6 ng/ml
[2017-04-25 05:50] LABS: INR 1.1; PROTHROMBIN TIME (PATIENT) 12.3 SECONDS (10.0-11.7)
[2017-04-25 05:53] LABS: ALBUMIN SERUM 2.5 g/dL (3.5-5.0); BILIRUBIN,TOTAL 0.8 mg/dL (0.2-2.0); BUN/CREATININE RATIO 26.66; CALCIUM SERUM 7.6 mg/dL (8.4-10.2); CREATININE SERUM 1.5 mg/dL (0.6-1.4); GLOM FILT RATE Estimated 33.7 mL/min (>60); MAGNESIUM 1.8 mg/dL (1.6-3.0); POTASSIUM 3.6 mmol/L (3.5-5.1)
[2017-04-25 05:55] LABS: HEMATOCRIT 23.8 % (35.0-45.0); HEMOGLOBIN 7.9 gm/dL (12.0-16.0); MEAN CELL VOLUME 97.4 FL (83-96); MEAN CORPUSCULAR HEMOGLOBIN 32.4 PG (28-34); MEAN CORPUSCULAR HGB CONC 33.3 g/dL (30-36); MEAN PLATELET VOLUME 8.3 FL (6.5-11.5); RED BLOOD COUNT 2.45 X10e (3.90-5.30); RED CELL DISTRIBUTION WIDTH 13.4 % (11.0-15.5)
[2017-04-25 09:51] LABS: HEMATOCRIT 29.7 % (35.0-45.0); MEAN CELL VOLUME 95.7 FL (83-96); MEAN CORPUSCULAR HEMOGLOBIN 31.9 PG (28-34); MEAN CORPUSCULAR HGB CONC 33.4 g/dL (30-36); MEAN PLATELET VOLUME 7.6 FL (6.5-11.5); RED BLOOD COUNT 3.11 X10e (3.90-5.30); RED CELL DISTRIBUTION WIDTH 14.6 % (11.0-15.5); WHITE BLOOD COUNT 14.7 X10e3 (4.0-10.5)
[2017-04-25 09:55] LABS: HEMOGLOBIN 9.9 gm/dL (12.0-16.0)
[2017-04-25 10:08] LABS: INR 1.1; PROTHROMBIN TIME (PATIENT) 12.3 SECONDS (10.0-11.7)
[2017-04-26 05:49] LABS: INR 1.6; PROTHROMBIN TIME (PATIENT) 17.3 SECONDS (10.0-11.7)
[2017-04-26 06:03] LABS: BASOPHIL% 0.2 % (0-2.5); EOSINOPHIL# 0.7 X10e3 (0-0.7); EOSINOPHIL% 7.6 % (0.0-7.0); HEMATOCRIT 29.9 % (35.0-45.0); HEMOGLOBIN 9.9 gm/dL (12.0-16.0); LYMPHOCYTE% 10.8 % (17.0-45.0); MEAN CELL VOLUME 95.3 FL (83-96); MEAN CORPUSCULAR HEMOGLOBIN 31.7 PG (28-34); MEAN CORPUSCULAR HGB CONC 33.2 g/dL (30-36); MEAN PLATELET VOLUME 7.9 FL (6.5-11.5); MONOCYTE# 0.5 X10e3 (0-1.0); MONOCYTE% 5.2 % (3.0-12.0); NEUTROPHIL# 6.9 X10e3 (1.5-7.1); NEUTROPHIL% 76.2 % (40-75); PLATELET COUNT 99 X10e3 (140-420); RED BLOOD COUNT 3.14 X10e (3.90-5.30); RED CELL DISTRIBUTION WIDTH 15.4 % (11.0-15.5); WHITE BLOOD COUNT 9.1 X10e3 (4.0-10.5)
[2017-04-26 06:12] LABS: ALBUMIN SERUM 2.4 g/dL (3.5-5.0); BILIRUBIN,TOTAL 0.7 mg/dL (0.2-2.0); BUN/CREATININE RATIO 28.57; CALCIUM SERUM 7.9 mg/dL (8.4-10.2); CREATININE SERUM 1.4 mg/dL (0.6-1.4); GLOM FILT RATE Estimated 36.7 mL/min (>60); MAGNESIUM 1.7 mg/dL (1.6-3.0); POTASSIUM 3.5 mmol/L (3.5-5.1); PREALBUMIN 9.9 mg/dL (17.0-42.0); PROTEIN TOTAL SERUM 4.9 g/dL (6.0-8.3)
[2017-04-26 07:05] LABS: DIFF IND NO
[2017-04-27 09:11] LABS: BASOPHIL% 0.3 % (0-2.5); EOSINOPHIL# 0.5 X10e3 (0-0.7); EOSINOPHIL% 8.1 % (0.0-7.0); HEMOGLOBIN 10.2 gm/dL (12.0-16.0); LYMPHOCYTE# 0.9 X10e3 (1.0-3.5); MEAN CELL VOLUME 96.1 FL (83-96); MEAN CORPUSCULAR HEMOGLOBIN 32.6 PG (28-34); MEAN CORPUSCULAR HGB CONC 33.9 g/dL (30-36); MEAN PLATELET VOLUME 8.3 FL (6.5-11.5); MONOCYTE# 0.3 X10e3 (0-1.0); MONOCYTE% 5.2 % (3.0-12.0); NEUTROPHIL# 4.4 X10e3 (1.5-7.1); NEUTROPHIL% 72.4 % (40-75); PLATELET COUNT 93 X10e3 (140-420); RED BLOOD COUNT 3.12 X10e (3.90-5.30); RED CELL DISTRIBUTION WIDTH 15.1 % (11.0-15.5); WHITE BLOOD COUNT 6.1 X10e3 (4.0-10.5)
[2017-04-27 09:12] LABS: DIFF IND NO
[2017-04-27 09:24] LABS: INR 2.7
[2017-04-27 09:30] LABS: PROTHROMBIN TIME (PATIENT) 29.1 SECONDS (10.0-11.7)
[2017-04-27 09:44] LABS: ALBUMIN SERUM 2.4 g/dL (3.5-5.0); BILIRUBIN,TOTAL 0.6 mg/dL (0.2-2.0); BUN/CREATININE RATIO 26.92; CALCIUM SERUM 8.2 mg/dL (8.4-10.2); CREATININE SERUM 1.3 mg/dL (0.6-1.4); GLOM FILT RATE Estimated 40.1 mL/min (>60); MAGNESIUM 2.1 mg/dL (1.6-3.0); PROTEIN TOTAL SERUM 5.1 g/dL (6.0-8.3)
[2017-04-27] MEDS ORDERED: COUMADIN3 MG PO (18:30)
[2017-04-27] MEDS ORDERED: MEROPENEM-500 MG/50 IV (18:32)
== END 2017-04-27 19:49 | disposition home health service (06) | DRG 698 ==
LOC: CED 07:43 → CEDOF 11:50 → CICCU3 11:50 → CED 11:50 → CICCU3 11:50 → CED 12:19 → CEDOF 12:19 → C3A PCU 16:54 → CICCU3 04-25 01:03 → C3A PCU 04-25 01:03 → CICCU3 04-25 07:29 → C3A PCU 04-26 17:24
PROVIDERS: Emergency Medicine; Family Medicine; Internal Medicine; Internal Medicine Cardiovascular Disease
PROC: 02HV33Z Insertion of Infusion Device into Superior Vena Cava, Percutaneous Approach (ICD-10-PCS; principal; 2017-04-24)
PROC: 4A02X4A Measurement of Cardiac Electrical Activity, Guidance, External Approach (ICD-10-PCS; 2017-04-24)
DX: T83.518A Infection and inflammatory reaction due to other urinary catheter, initial encounter (principal); A41.81 Sepsis due to Enterococcus; R65.21 Severe sepsis with septic shock; E43 Unspecified severe protein-calorie malnutrition; G93.41 Metabolic encephalopathy; I50.23 Acute on chronic systolic (congestive) heart failure; D62 Acute posthemorrhagic anemia; I07.1 Rheumatic tricuspid insufficiency; D69.6 Thrombocytopenia, unspecified; N18.3 Chronic kidney disease, stage 3 (moderate); I13.0 Hypertensive heart and chronic kidney disease with heart failure and stage 1 through stage 4 chronic kidney disease, or unspecified chronic kidney disease; Z68.1 Body mass index [BMI] 19.9 or less, adult; G40.909 Epilepsy, unspecified, not intractable, without status epilepticus; Y73.8 Miscellaneous gastroenterology and urology devices associated with adverse incidents, not elsewhere classified; Z95.2 Presence of prosthetic heart valve; R04.0 Epistaxis; N81.10 Cystocele, unspecified; I25.10 Atherosclerotic heart disease of native coronary artery without angina pectoris; G89.4 Chronic pain syndrome; E03.9 Hypothyroidism, unspecified; R32 Unspecified urinary incontinence; Z90.49 Acquired absence of other specified parts of digestive tract; Z95.1 Presence of aortocoronary bypass graft; Z95.810 Presence of automatic (implantable) cardiac defibrillator; Z88.0 Allergy status to penicillin; Z88.2 Allergy status to sulfonamides; I25.5 Ischemic cardiomyopathy
CPT/HCPCS: 36415; 36430; 36600; 71010; 80048; 80053; 81003; 82533; 82550; 82553; 82607; 82746; 82803; 82947; 83735; 83880; 84134; 84443; 84484; 85014; 85018; 85025; 85027; 85610; 85730; 86850; 86900; 86901; 86923; 87040; 87086; 87088; 87186; 93005; 93306; 93971; 94760; 97116; 97162; 97165; 97535; 99285; G8978-GP; G8979-GP; G8980-GP; G8987-GO; G8988-GO; G8989-GO; J0696; J1265; J1644; J2185; J2405; J3475; J3490; P9016